=== PATIENT | female | born 1950 | race Caucasian/White ===

== ENCOUNTER → 2016-08-25 | Outpatient (CLI) | payer MEDICARE, OTHER ==
[~2016-08-25] MED LIST: DIFL5DRO LEFT EYE; NAPR220C11 PO; NEPA1.7D RIGHT EYE; POLY10DR3 RIGHT EYE; VITA1TAB21 PO; [UNRECOGNIZED DRUG - CODE] LEFT EYE; [UNRECOGNIZED DRUG - CODE] PO
== END ==
LOC: WC.BC 10:55
DX: Z12.31 Encounter for screening mammogram for malignant neoplasm of breast (principal); Z80.3 Family history of malignant neoplasm of breast
CPT/HCPCS: 77063; G0202

== ENCOUNTER 2016-08-27 08:21 | Day surgery (SDC) | payer MEDICARE, OTHER ==
[~2016-08-27] VITALS: Ht 163.8 cm; Wt 65.2 kg
[~2016-08-27 08:21] MED LIST changes: -DIFL5DRO LEFT EYE; +LIDOCAINE 1% (10mg/ml) 2ml SDV INJ ONE; +LR 1,000 ML IV SCH; -NEPA1.7D RIGHT EYE; -POLY10DR3 RIGHT EYE; -[UNRECOGNIZED DRUG - CODE] LEFT EYE
--- OUTSIDE RECORDS SUMMARY | 2016-08-27 08:26 | XMS REPORT | Continuity of Care Document ---
Author Author [facility] Organization [facility] Address Unknown Phone Unavailable Support Name Relationship Address Phone WYATT INTERIANO DO Caregiver [address] [place] [address] [place] [address] Unavailable NURIA WEAVER MD Caregiver Unknown Unavailable ENZO JUAREZ Next Of Kin [address] [place] [address] Insurance Providers Guarantor Francisca Juarez Address [address] [place] [address] Email DENIED/NO TO PT [place] Payer Medicare Policy Number [id number] Subscriber's Name Francisca Juarez Relationship 18 Self Effective Date 14 Payer Other A Insurance Policy Number [id number] Subscriber's Name Francisca Juarez Relationship 18 Self Group Number [id number] Effective Date 14 Advance Directives Directive Response Recorded Date/Time Dr Mora Resuscitation Status Full Code, unverified 02/24/16 5:22pm Resuscitation Documents on File No 02/25/16 11:30am DPOA for Healthcare Only No 02/25/16 11:30am Living Will No 02/25/16 11:30am Problems No problem information available. Medications Current Home Medications Medication Dose Units Route Directions Days Qty Instructions Start Date Difluprednate (Durezol) 5 Ml Drops 1 Drop Left Eye Only Three Times A Day 5 02/24/16 Diphth,Pertuss(Acell),Tet Vac (Boostrix Tdap) 0.5 Ml Vial 1 Drop Left Eye Only Daily 1 02/24/16 Nepafenac (Ilevro) 1.7 Ml Drops.susp 1 Drop Right Eye Only Daily 3 02/24/16 Polymyxin B Sulf/Trimethoprim (Polymyxin B-Tmp Eye Drops) 10 Ml Drops 1 Drop Right Eye Only Three Times A Day 10 02/24/16 Social History Social History Problem Response Recorded Date/Time Onset Date Status Chewing Tobacco Status No 02/25/2016 11:32am Not Applicable Not Applicable Hx Substance Use No 02/25/2016 11:32am Not Applicable Not Applicable Hx Alcohol Use No 02/25/2016 11:32am Not Applicable Not Applicable Has the pt used tobacco in the last 12 months No 02/25/2016 11:32am Not Applicable Not Applicable Query Response Start Date Stop Date Smoking Status Never smoker Hospital Discharge Instructions No hospital discharge instructions. Plan of Care Discharge Date 02/25/16 2:22pm Prescriptions See Medication Section Functional Status Query Response Date Recorded Ability to complete ADL's impeded by No change February 25, 2016 11:30am Allergies, Adverse Reactions, Alerts No known allergies. Immunizations Query Response on File Recorded Date/Time Hx Influenza Vaccination Y jan 2016 02/25/16 11:32am Hx Pneumococcal Vaccination Y november 2015 02/25/16 11:32am Hx Influenza Vaccination Y jan 2016 02/25/16 11:32am Vital Signs Acute Vital Signs Vital Response Date/Time Temperature (Fahrenheit) 97.6 deg F (96.8 - 99.1) 02/25/2016 2:15pm Temperature (Calculated Celsius) 36.79850 degrees C (36.0 - 37.3) 02/25/2016 2:15pm Temperature Source Oral 02/25/2016 2:15pm Pulse Rate (adult) 72 bpm (60 - 100) 02/25/2016 2:15pm Respiratory Rate 16 breaths/min (10 - 20) 02/25/2016 2:15pm O2 Sat by Pulse Oximetry 99 % (90 - 100) 02/25/2016 2:15pm Oxygen Delivery Method Room Air 02/25/2016 2:15pm Blood Pressure 122/66 mm Hg 02/25/2016 2:15pm Blood Pressure Source Automatic Cuff 02/25/2016 2:15pm Height (Feet) 5 feet 02/25/2016 11:15am Height (Inches) 4.00 inches 02/25/2016 11:15am Weight (Kilograms) 64.300 kg 02/25/2016 11:15am Body Mass Index (BMI) 24.3 02/25/2016 11:15am Results No known relevant diagnostic tests, laboratory data and/or discharge summary. Procedures Procedure Status Date Provider(s) Cataract surgery Completed 02/25/16 NURIA WEAVER MD Encounters Encounter Location Arrival/Admit Date Discharge/Depart Date Attending Provider Departed [facility] 02/25/16 11:10am 02/25/16 2 :22pm NURIA WEAVER MD
--- OUTSIDE RECORDS SUMMARY | 2016-08-27 08:26 | XMS REPORT | Referral Summary ---
Author Author [facility] Organization [facility] Address Unknown Phone Unavailable Care Team Providers Care Engineering Associate Name Role Phone Alexey Mace Primary Care Physician [phone] Encounter VC Date(s): 02/04/16 - 02/04/16 [facility], [address] [place] [id number] Discharge Disposition: 01-Home or Self Care Attending Physician: Alexey Mace DO Admitting Physician: Alexey Mace DO Vital Signs No data available for this section Problem List Condition Effective Dates Status Health Status Informant Abnormal auditory Active perception(Confirmed ) Abnormal x-ray of Active temporal bones(Confirmed) Allergies, Adverse Reactions, Alerts No Known Medication Allergies Medications Aleve 220 mg oral tablet 1 tabs, Oral, q8hr, as needed for pain, # 30 tabs, 0 Refill(s) Start Date: 10/26/13 Status: Ordered Misc Medication antiacid chews, 0 Refill(s) Start Date: 12/03/15 Status: Ordered Vitamin B Complex 100 0 Refill(s) Start Date: 12/03/15 Status: Ordered Results No data available for this section Immunizations Vaccine Date Refusal Reason tetanus/diphth/pertuss (Tdap) adult/adol 12/10/15 influenza virus vaccine, inactivated 02/04/16 influenza virus vaccine, inactivated 02/19/15 influenza virus vaccine, inactivated1 02/13/14 influenza virus vaccine, live 02/28/13 influenza virus vaccine, live 02/23/12 pneumococcal 13-valent conjugate vaccine 12/03/15 1Location History: See scanned document Procedures Procedure Date Related Diagnosis Body Site Colonoscopy 2006 Left inguinal Hernia repair 2003 Right Carpal tunnel release1 2003 Appendectomy 1964 1right wrist Social History Social History Type Response Smoking Status Never smoker Assessment and Plan No data available for this section
[2016-08-27 08:30] VITALS: Ht 163.8 cm; Wt 65.2 kg
[2016-08-27 08:31] VITALS: BP 180/85; PULSE 80; RESP 14; TEMP 97.7; O2SAT 99
--- NOTE | 2016-08-27 10:02 | ANESPREOP ---
Anesthesia Record Date and Time DATE: 08/27/16 TIME: 10:01 Pre-Op Diagnosis crcs Proposed Surgical Procedure COLONOSCOPY Allergies: Coded Allergies: No Known Allergies (Unverified , 08/27/16) Ht/Wt/BMI Height: 5 ' 4.50 " Weight: 65.200 kg BMI: 24.3 kg/m2 Vital Signs Date Time Temp Pulse Resp B/P Pulse Ox O2 Delivery O2 Flow Rate FiO2 08/27/16 08:31 97.7 80 14 180/85 99 Room Air Medications Inpatient Medications Current Medications Medications (Trade) Dose Ordered Sig/Melissa Start Time Stop Time Status Last Admin Dose Admin Lactated Ringer's (Lactated Ringers) 1,000 ml @ 30 mls/hr Q24H 08/27/16 07:00 08/27/16 09:20 30 MLS/HR Calcium Carbonate (Antacid) 300 Mg Tab.chew, 1 TAB PO DAILY PRN for PRN ORDERS, (Reported) Last Taken: on 08/23/16 Naproxen Sodium (Aleve) 220 Mg Capsule, 1 CAP PO Q8H PRN for PAIN, (Reported) Last Taken: on 08/20/16 Vitamin B Complex (Vitamin B Complex) 1 Each Tablet , 1 TAB PO DAILY, (Reported) Last Taken: on 08/13/16 Currently on Beta Denita: No Medical/Surgical History Anesthesia PMH: Reports: *Hypertension (BP ELEVATED TODAY), Anesthesia Reactions (no airway issues), Arthritis (OA), Cancer (2010 non-hodgkins ), Reflux (ON MEDS ), Denies: Clotting Problems, Glaucoma, Malignant Hyperthermia, Renal Disease, Sleep Apnea Smoking Status: Never smoker Has pt. smoked today?: No Use Chewing Tobacco?: No Second Hand Exposure: No Substance Use Type: does not use Substance last used: unknown Alcohol Intake: none Last Drink: unknown HX of Last Menstrual Period: AGE 49 Past Surgical History Orthopedic Surgeries: Yes - ctr- right hand Abdominal Surgeries: Yes - appy,hernia Genitourinary Surgeries: Cardiac Surgeries: Endocrine Surgeries: Reproductive Surgeries: Neurological Surgeries: Ear Surgeries: Nose Surgeries: Throat Surgeries: Other Surgeries: Yes - PEGGY. CAT., COLONOSCOPY Anesthesia Adverse Reactions: FOUND none Family Hx of Anesthesia Advers: none Hx of Motion Sickness: No Pertinent Findings EKG Rhythm: Sinus Rhythm Physical Exam Respiratory: Bilat breath sounds equal, Lungs clear Cardiovascular: FOUND Regular rate, rhythm, FOUND No murmur Airway Assessment Mallampati Score: I TMD: 3 Fingerbreadths Neck Extension: Good Overall Assessment: No Airway Concerns ASA: 2 Plan Anesthesia Plan: TIVA Discussion Discussed risks/options/alternatives of anesthesia and questions answered. Patient consents. Nursing pain assessment noted. Present: Spouse Attestation Statement Prior to the delivery of any anesthetic medication, I examined the patient, developed the plan, obtained the patient's consent and discussed the risk and benefits of the procedure with the patient/guardian. CRISTINA BUTTS EXCELSIOR MACHINE FEEDER Aug 27, 2016 10:02
[2016-08-27] MEDS ORDERED: LIDOCAINE 1% (10mg/ml) 2ml SDV ONE (10:24)
[2016-08-27] MEDS ORDERED: PROPOFOL 500mg 50 ML IV ONE (10:24)
[2016-08-27 11:03] VITALS: BP 119/59; PULSE 65; RESP 12; TEMP 97; O2SAT 95
[2016-08-27 11:10] VITALS: BP 113/60; PULSE 66; RESP 14; O2SAT 95
[2016-08-27 11:20] VITALS: BP 102/61; PULSE 70; RESP 16; O2SAT 97
[2016-08-27 11:30] VITALS: BP 127/90; PULSE 64; RESP 15; O2SAT 98
[2016-08-27 11:40] VITALS: BP 160/68; PULSE 68; RESP 16; O2SAT 98
--- NOTE | 2016-08-27 11:52 | ANESPO ---
Post-Op Note Date 08/27/16 Time: 11:51 Status Pt Participated in Evaluation: Pt participated in person Vital Signs Date Time Temp Pulse Resp B/P Pulse Ox O2 Delivery O2 Flow Rate FiO2 08/27/16 11:40 68 16 160/68 98 Room Air 08/27/16 11:03 97.0 Respiratory Function: Airway patent, Regular respirations Cardiovascular Function: Regular pulse Mental Status: Alert/oriented Pain Level Intensity: 0 Unable to Assess Pain Due To: Medicated/Sleeping Hydration: Taking po fluids Complications during Recovery None apparent Post-Anesthesia Notes [email or web address] Follow-Up Instructions Instructions Per Surgeon Additional Information none CRISTINA BUTTS CRNA Aug 27, 2016 11:52
--- NOTE | 2016-08-27 16:59 | OPNOTEF ---
DATE OF SERVICE 08/27/2016 SURGEON Syed Preciado MD PREOPERATIVE DIAGNOSIS Colorectal cancer surveillance. POSTOPERATIVE DIAGNOSIS Colorectal cancer surveillance, colonic polyp x 1 at 30 cm from the anal verge. PROCEDURES Colonoscopy with polypectomy via cold biopsy technique. ANESTHESIA TIVA. BRIEF HISTORY/INDICATIONS Mrs. Juarez is a 65-year-old female who presents today to [facility] to undergo a colonoscopy to serve as a portion of her overall colorectal cancer surveillance. For completeness please refer to notes included in the patient's chart. FINDINGS Upon colonoscopy there was no evidence for angiodysplastic lesions, diverticula or kristina malignancies. The patient was found have a single diminutive-appearing colonic polyp at 30 cm from the anal verge that was on the order of 5 mm in diameter and removed in its entirety via cold biopsy technique. DESCRIPTION OF PROCEDURE After informed consent was obtained the patient was brought to the endoscopy suite and placed on the table in left lateral decubitus position. Patient subsequently underwent total intravenous anesthesia by the nurse campaign management specialist at my request. Formal timeout was then completed. Next, a digital rectal exam was performed. Normal sphincter tone. No rectal masses were appreciated. An Olympus colonoscope was inserted into the anus and advanced through the lumen of the colon under direct visualization at all times until the cecum was ascertained. Triangulation of the tenia coli, ileocecal valve and appendiceal lumen were all visualized. The scope was slowly withdrawn, maintaining visualization of the lumen at all times. As the scope was being slowly withdrawn a single polyp at 30 cm from the anal verge was identified, as discussed above. This polyp was grasped and removed in its entirety via cold biopsy technique and submitted for pathologic evaluation. There was no evidence for angiodysplastic lesions, diverticula or kristina malignancies. Once the colonoscope was drawn back to the rectal vault a J-maneuver was performed. No worrisome perianal pathology was noted. Scope was allowed to straighten and was withdrawn through the anal verge. Patient tolerated the procedure without difficulty and was sent back to the preop area in stable condition. Will await biopsy results from today's single polypectomy and proceed accordingly with further recommendations thereafter. [facility]
== END 2016-08-27 11:56 | disposition home or self-care (01) ==
LOC: SCU 08:21
PROVIDERS: ATTEND Surgery
DX: Z12.11 Encounter for screening for malignant neoplasm of colon (principal); D12.5 Benign neoplasm of sigmoid colon
CPT/HCPCS: 45380; J7120; 88305